=== PATIENT | female | born 1980 | race Two or more races ===

== ENCOUNTER 2016-10-13 09:17 | Emergency (ER) | payer OTHER ==
[2016-10-13 09:24] VITALS: BP 111/71; PULSE 92; TEMP 97.5; BMI 24.4
[2016-10-13] MEDS ORDERED: SILVER SULFADIAZINE 1% TOP CREAM 50 GM JAR TP ONE ×2 (09:37→09:40)
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
== END 2016-10-13 10:26 | disposition home or self-care (01) ==
LOC: JERFT 09:17
PROC: 2W21X4Z Dressing of Face using Bandage (ICD-10-PCS; principal; 2016-10-13)
PROC: 2W2CX4Z Dressing of Right Lower Arm using Bandage (ICD-10-PCS; 2016-10-13)
DX: T22.211A Burn of second degree of right forearm, initial encounter (principal); T20.16XA Burn of first degree of forehead and cheek, initial encounter; X12.XXXA Contact with other hot fluids, initial encounter; Y93.G1 Activity, food preparation and clean up; Y92.030 Kitchen in apartment as the place of occurrence of the external cause
CPT/HCPCS: 99281-25

== ENCOUNTER 2018-11-05 11:42 | Emergency (ER) | payer OTHER ==
[2018-11-05 12:28] VITALS: BP 103/73; PULSE 103; BMI 22.4
[2018-11-05] MEDS ORDERED: KETOROLAC TROMETHAMINE 60 MG/2 ML VIAL IM ONE (13:30)
[2018-11-05] MEDS ORDERED: LIDOCAINE 5% TOPICAL PATCH TP ONE (13:30)
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
[2018-11-05] MEDS ORDERED: LIDOCAINE 5% TOPICAL PATCH ONE (13:35)
[2018-11-05] MEDS ORDERED: KETOROLAC TROMETHAMINE 60 MG/2 ML VIAL ONE (13:35)
[2018-11-05] MEDS ORDERED: LIDOCAINE PATCH REMOVAL MC SCH (22:00)
== END 2018-11-05 14:45 | disposition home or self-care (01) ==
LOC: JERFT 11:42
DX: S39.012A Strain of muscle, fascia and tendon of lower back, initial encounter (principal); V44.5XXA Car driver injured in collision with heavy transport vehicle or bus in traffic accident, initial encounter; Y92.414 Local residential or business street as the place of occurrence of the external cause; Y93.89 Activity, other specified; Y99.8 Other external cause status
CPT/HCPCS: 72100-TC-FY; 99281-25